=== PATIENT | female | born 1945 | race Caucasian/White ===

== ENCOUNTER 2019-07-12 21:32 | Emergency (ER) | payer MEDICARE, MEDICAID ==
[2019-07-12] MEDS ORDERED: LORazepam 2 MG/ML VIAL IVP STA (22:24)
[2019-07-12] MEDS ORDERED: DEXAMETHASONE 10 MG/ML VIAL IVP STA (22:24)
[2019-07-12] MEDS ORDERED: HYDROmorphone 1 MG/ML CARPUJECT IVP STA (22:26)
[2019-07-12 23:16] LABS: BASOPHILS # (AUTO) 0.1 10^3/uL (0.0-0.1); BASOPHILS % (AUTO) 0.8 %; EOSINOPHILS # (AUTO) 0.2 10^3/uL (0.0-0.7); EOSINOPHILS % (AUTO) 1.4 %; HGB - HEMOGLOBIN 11.8 g/dL (12.0-16.0); LYMPHOCYTES # (AUTO) 2.3 10^3/uL (1.5-3.5); LYMPHOCYTES % (AUTO) 21.6 %; MEAN CORPUSCULAR HEMOGLOBIN 26.5 pg (27.0-31.0); MEAN CORPUSCULAR HGB CONC 31.6 g/dL (32.0-36.0); MEAN PLATELET VOLUME 11.4 fL (7.9-10.8); MONOCYTES # (AUTO) 1.2 10^3/uL (0.0-1.0); MONOCYTES % (AUTO) 11.7 %; NEUTROPHILS # (AUTO) 6.8 10^3/uL (1.5-6.6); NEUTROPHILS % (AUTO) 64.1 %; PLT - PLATELET COUNT 295 10^3/uL (130-450); RED BLOOD COUNT 4.45 10^6/uL (4.20-5.40); RED CELL DISTRIBUTION WIDTH 15.8 % (12.0-15.0); WHITE BLOOD COUNT 10.6 x10^3/uL (4.8-10.8)
[2019-07-12 23:21] VITALS: BP 125/113
[2019-07-12 23:26] LABS: ALBUMIN 4.1 g/dL (3.2-5.5); ALBUMIN/GLOBULIN RATIO 1.1 (1.0-2.2); BILIRUBIN,TOTAL 0.5 mg/dL (0.2-1.0); CALCIUM 9.6 mg/dL (8.5-10.3); CREATININE 0.6 mg/dL (0.4-1.0); TOTAL PROTEIN 7.7 g/dL (6.7-8.2)
--- NOTE | 2019-07-12 23:44 | CT Report ---
Reason: neck pain worse today; no noted injury Procedure Date: 07/12/2019 Accession Number: [id number] / [id number] Procedure: CT - CERVICAL SPINE WO CPT Code: FULL RESULT: EXAM: CT CERVICAL SPINE WITHOUT CONTRAST DATE: 07/12/2019 11:13 PM. HISTORY: Neck pain, worse today. No noted injury. COMPARISONS: None. TECHNIQUE: Thin-section axial images were acquired of the cervical spine without contrast. Post-processing: Coronal and sagittal reformats. Other: None. In accordance with CT protocol optimization, one or more of the following dose reduction techniques were utilized for this exam: automated exposure control, adjustment of mA and/or KV based on patient size, or use of iterative reconstructive technique. FINDINGS: Alignment: No scoliosis or spondylolisthesis. Bones: No fracture or bone lesion. Interspace Levels/Facets: C1-C2: Anterior degenerative changes. C2-C3: Unremarkable. C3-C4: Posterior disk protrusion. C4-C5: Unremarkable. C5-C6: Moderate disk space narrowing with spurring. C6-C7: Severe disk space narrowing. C7-T1: Moderate disk space narrowing. Musculature: Normal. No fatty atrophy. Other: The paravertebral and prevertebral soft tissues are unremarkable. The lung apices are clear. IMPRESSION: 1. Posterior disk protrusion at C3-C4. 2. Multilevel degenerative disk space narrowing, worst at C6-C7. RADIA
--- NOTE | 2019-07-12 23:47 | CT Report ---
Reason: headache worse today; h/o ? hydrocephalus Procedure Date: 07/12/2019 Accession Number: [id number] / [id number] Procedure: CT - HEAD WO CPT Code: FULL RESULT: EXAM: CT HEAD EXAM DATE: 07/12/2019 11:12 PM CLINICAL HISTORY: Headache worse today; history of questionable hydrocephalus. COMPARISON: None. TECHNIQUE: Multiaxial CT images were obtained from the foramen magnum to the vertex. Reformats: Sagittal and coronal. IV contrast: None. In accordance with CT protocol optimization, one or more of the following dose reduction techniques were utilized for this exam: automated exposure control, adjustment of mA and/or KV based on patient size, or use of iterative reconstructive technique. FINDINGS: Parenchyma: No intraparenchymal hemorrhage. No evidence of mass, midline shift or CT findings of acute infarction. Briceño-white differentiation is distinct. Diffuse mild to moderate chronic microangiopathic white matter changes are evident. Incidental empty sella turcica. Extraaxial Spaces: Normal for age. No subdural or epidural collections identified. Ventricles: The ventricles and cortical sulci are normal size without hydrocephalus. Sinuses: Imaged paranasal sinuses, orbits, and mastoids show no significant abnormality. Bones: No evidence of fracture or calvarial defect. Other: None. IMPRESSION: 1. Mild to moderate probable chronic small vessel ischemic changes without evidence of acute intracranial abnormality. 2. No hydrocephalus. 3. Empty sella turcica, most commonly a clinically insignificant finding but occasionally associated with headache and/or diabetes insipidus. RADIA
[2019-07-12] MEDS ORDERED: oxyCODONE/ACET 5/325 Prepack 4 PO STA (23:56)
--- NOTE | 2019-07-13 00:31 | ED Physician Documentation ---
PD HPI NECK PAIN - Stated complaint Stated Complaint: NECK PX, HEAD PX - Chief complaint Chief Complaint: Neuro - History obtained from History obtained from: Patient, Family - History of Present Illness Timing - onset: How many hours ago (noted onset of neck pain with movement when awoke from sleep/nap. No known injury. Pain in back of head as well. Denies focal weakness.) Timing - duration: Hours (1-2) Timing - details: Abrupt onset, Still present Location: Mid, Lower, Right Quality: Pain, Sharp Associated symptoms: No: Fever, Weakness, Numbness Improves with: Rest Worsened by: Movement Contributing factors: No: Lifting, Twisting, Trauma Similar symptoms before: Has not had sx before (arthritis of the neck and back with ongoing/chronic pains and also muscles pains from fibromyalgia. Moved from [place] to here with her son a week ago, and does not have Rx of her usual pain meds from pain clinic ([facility]). Has Rx of her other meds waiting at Pharmacy to [facility] tomorrow (muscle relaxant and nerve med).) Review of Systems Constitutional: denies: Fever Nose: denies: Rhinorrhea / runny nose, Congestion Throat: denies: Sore throat Respiratory: denies: Cough Musculoskeletal: reports: Neck pain, Back pain, Extremity pain Neurologic: denies: Focal weakness, Numbness PD PAST MEDICAL HISTORY - Past Medical History Cardiovascular: None Neuro: None Musculoskeletal: Fibromyalgia, Chronic back pain, Other (chronic neck pain) - Present Medications Home Medications: Ambulatory Orders Medication Instructions Recorded Confirmed DULoxetine [Cymbalta] 90 mg PO DAILY 07/12/19 07/12/19 Lisinopril 20 mg PO DAILY 07/12/19 07/12/19 Omeprazole 20 mg PO TID 07/12/19 07/12/19 Pravastatin [Pravachol] 80 ng PO QPM 07/12/19 07/12/19 amLODIPine [Norvasc] 10 mg PO DAILY 07/12/19 07/12/19 metFORMIN [Glucophage] 1,000 mg PO BIDWM 07/12/19 07/12/19 tiZANidine [Zanaflex] 8 mg PO Q8H 07/12/19 07/12/19 Oxycodone HCl/Acetaminophen 1 each PO TID #20 tablet 07/13/19 [Percocet 5-325 mg Tablet] Tapentadol HCl [Nucynta] 50 mg PO TID #30 tablet 07/13/19 dexAMETHasone [Decadron] 4 mg PO DAILY #7 tablet 07/13/19 - Allergies Allergies/Adverse Reactions: Allergies Allergy/AdvReac Type Severity Reaction Status Date / Time ibuprofen Allergy Severe Anaphylaxis Verified 07/12/19 21:53 NSAIDS (Non-Steroidal Allergy Severe Anaphylaxis Verified 07/12/19 21:53 Anti-Inflamma Penicillins Allergy Unknown Verified 07/12/19 21:53 PD ED PE NORMAL - Vitals Vital signs reviewed: Yes - General General: Alert and oriented X 3, Well developed/nourished, Other (appears uncomfortable with guarded ROM of the neck. ) - HEENT HEENT: Atraumatic, Pharynx benign. No: Moist mucous membranes - Neck Neck: Supple, no meningeal sign, No adenopathy - Cardiac Cardiac: RRR, No murmur - Respiratory Respiratory: Clear bilaterally - Abdomen Abdomen: Soft, Non tender - Derm Derm: Normal color, Warm and dry - Extremities Extremities: No tenderness to palpate, Normal ROM s pain, No edema, No calf tenderness / cord - Neuro Neuro: Alert and oriented X 3, collar tailor 2-12 intact, No motor deficit, No sensory deficit Eye Opening: Spontaneous Motor: Obeys Commands Verbal: Oriented GCS Score: 15 - Psych Psych: Normal mood. No: Normal affect (slightly anxious) Results - Vitals Vitals: Oxygen O2 Source Room air - Labs Labs: Laboratory Tests 07/12/19 07/12/19 07/12/19 23:10 23:10 23:10 WBC 10.6 RBC 4.45 Hgb 11.8 L Hct 37.4 MCV 84.0 MCH 26.5 L MCHC 31.6 L RDW 15.8 H Plt Count 295 MPV 11.4 H Neut # (Auto) 6.8 H Lymph # (Auto) 2.3 [place] # (Auto) 1.2 H Eos # (Auto) 0.2 Baso # (Auto) 0.1 Absolute Nucleated RBC 0.00 Nucleated RBC % 0.0 ESR 21 Sodium 137 Potassium 4.1 Chloride 98 L Carbon Dioxide 26 Anion Gap 13.0 BUN 21 H Creatinine 0.6 Estimated GFR (MDRD) 98 Glucose 91 Calcium 9.6 Total Bilirubin 0.5 AST 14 ALT 13 Alkaline Phosphatase 82 Total Protein 7.7 Albumin 4.1 Globulin 3.6 Albumin/Globulin Ratio 1.1 Lipase 22 - Rads (name of study) head CT Radiology: Prelim report reviewed (no acute process), See rad report cervical CT Radiology: Prelim report reviewed (arthritic changes, no fractures), See rad report PD MEDICAL DECISION MAKING - ED course Complexity details: considered differential (had traveled recently with some bumpiness in airplane flight. May have flared some arthritis. Has not had usual pain med for few days, so lack of regular pain control. Can get CT to ensure no acute osseous process. ), d/w patient Departure - Departure Disposition: Home, Self Care Clinical Impression: Neck pain Headache Qualifiers: Headache type: unspecified Headache chronicity pattern: acute headache Intractability: not intractable Qualified Code(s): R51 - Headache Condition: Stable Record reviewed to determine appropriate education?: Yes Instructions: ED Cephalgia Unspecified, ED Neck Pain No Trauma Prescriptions: dexAMETHasone [Decadron] 4 mg PO DAILY #7 tablet Oxycodone HCl/Acetaminophen [Percocet 5-325 mg Tablet] 1 each PO TID #20 tablet Tapentadol HCl [Nucynta] 50 mg PO TID #30 tablet Comments: supply officer your usual prescriptions tomorrow as planned. I wrote for the Nucynta pain medicine you get from your pain specialist continuing the 3 times a day regimen. There is a short-term prescription as that is what is allowed out of the ER. Additionally due to the increased pain over usual, we would add Decadron steroid for a week to reduce inflammation. You can also add oxycodone tablet 1 3 times a day if needed for pain beyond your baseline. I would anticipate this prescription to be short-term until you return to your baseline neck pain and chronic pain levels. Watch for other symptoms develop such as rash or sores or fevers or localized weakness or numbness and return if these develop. Discharge Date/Time: 07/12/19 22:50
== END 2019-07-12 22:50 | disposition home or self-care (01) ==
LOC: ED 21:32
DX: M50.21 Other cervical disc displacement, high cervical region (principal); M48.02 Spinal stenosis, cervical region; R51 Headache; M79.7 Fibromyalgia
CPT/HCPCS: 36415; 70450; 72125; 80053; 83690; 85025; 85651; 96374; 96375; 99284; J1170; J2060